=== PATIENT | female | born 1935 | race Two or more races ===

== ENCOUNTER 2023-12-28 04:45 | Day surgery (SDC) | payer OTHER ==
[2023-12-25 16:38] VITALS: BMI 23.9
[2023-12-28] MEDS ORDERED: LIDOCAINE HCL/PF 2% SDV 5ML VIAL ONE (07:46)
[2023-12-28] MEDS ORDERED: DEXAMETHASONE SOD PHOSPHATE 10 MG/1 ML VIAL ONE (07:47)
[2023-12-28 09:29] VITALS: RESP 20
[2023-12-28] MEDS: LIDOCAINE HCL 1% PRESERVATIVE FREE - 30ML VIAL IJ ONE (11:36)
[2023-12-28] MEDS ORDERED: IOHEXOL 180 MG/1 ML ML IJ ONE (11:41)
[2023-12-28] MEDS: IOHEXOL 180 MG/1 ML ML IJ ONE ×2 (11:41)
[2023-12-28] MEDS ORDERED: DEXAMETHASONE SOD PHOSPHATE 10 MG/1 ML VIAL IVPUSH ONE (11:42)
[2023-12-28] MEDS: DEXAMETHASONE SOD PHOSPHATE 10 MG/1 ML VIAL IVPUSH ONE ×2 (11:42)
[2023-12-28] MEDS ORDERED: ACETAMINOPHEN 500 MG TABLET (FP) PO PRN (13:07)
[2023-12-28 13:47] VITALS: BP 150/62; PULSE 73; TEMP 97.9
== END 2023-12-28 12:12 | disposition home or self-care (01) ==
LOC: JASU-SURG 04:45
PROVIDERS: ATTEND Pain Medicine Pain Medicine
PROC: 3E0R3BZ Introduction of Anesthetic Agent into Spinal Canal, Percutaneous Approach (ICD-10-PCS; 2023-12-28)
PROC: 3E0R33Z Introduction of Anti-inflammatory into Spinal Canal, Percutaneous Approach (ICD-10-PCS; principal; 2023-12-28 11:30)
DX: M54.16 Radiculopathy, lumbar region (principal); M48.061 Spinal stenosis, lumbar region without neurogenic claudication
CPT/HCPCS: 76000-TC-FY; J1100